=== PATIENT | female | born 1985 | race Caucasian/White ===

== ENCOUNTER → 2017-08-25 | Outpatient (CLI) | payer OTHER | LOC: BMCIMAGING 13:31 | PROVIDERS: ATTEND Emergency Medicine | DX: S92.514A Nondisplaced fracture of proximal phalanx of right lesser toe(s), initial encounter for closed fracture (principal) ==

== ENCOUNTER 2018-08-15 12:58 | Inpatient (IN) | payer OTHER ==
[2018-08-15] MEDS ORDERED: ONDANSETRON DISINTEGRATING 4 MG TAB PO PRN (18:44)
[2018-08-15] MEDS ORDERED: ONDANSETRON 4 MG/2 ML VIAL IVP PRN (18:44)
[2018-08-15] MEDS ORDERED: ACETAMINOPHEN 325 MG TAB PO PRN (18:44)
[2018-08-15] MEDS ORDERED: LORazepam 1 MG TAB PO PRN (18:46)
[2018-08-15] MEDS ORDERED: FLUMAZENIL 0.5 MG/5 ML MDV IVP PRN (18:46)
--- NOTE | 2018-08-15 18:53 | PDGENHP ---
History and Physical - Chief Complaint ETOH WD, hospital transfer - History of Present Illness This is a 33 yo female who has been transferred from [facility] due to Insurance reasons. She was admitted there due to ETOH WD. Hx is obtained from the patient and the nurse. I do not see [facility] Records at this time. Apparently the pt self admitted herself to [facility] due alcoholism on Aug 10. She reports that she transferred out of [facility] and into [facility] on Aug 13 due to possible hallucinations and worsening ETOH WD. At [facility] she was admitted into the ICU and was initially started on Precedex. Per reports this was discontinued yesterday. She is still on scheduled Librium at 25mg bid, but she reports that she has not received any this afternoon/evening. She has not required Ativan since this morning. She is not showing any signs of WD currently. She denies anxiety, tremor, cp, sob, n/v/d. 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 She prefers white wine. She has a 2 year old at home and she is hopeful to return soon. PMHx: alcoholism with binge drinking SHx: no T/E/I FmHx: non contributory History Information - Allergies/Home Medication List Allergies/Adverse Reactions: vancomycin Allergy (Intermediate, Verified 05/08/16 21:07) Home Medications: 1 tab PO BID 05/08/16 [Last Taken 1 Day Ago ~05/07/16] I have personally reviewed and updated: medical history, social history - Social History Smoking Status: Former smoker Review of Systems Review of Systems: ROS: 10pt was reviewed & negative except for what was stated in HPI & below Physical Exam Physical Exam: Constitutional: no apparent distress Eyes: PERRL Ears, Nose, Mouth, Throat: moist mucous membranes, hearing normal Cardiovascular: regular rate and rhythym, No edema Respiratory: no respiratory distress, no rales or rhonchi, clear to auscultation Gastrointestinal: normoactive bowel sounds, soft, non-tender abdomen, no palpable masses Skin: warm Musculoskeletal: full muscle strength Neurologic: AAOx3, CN II-XII Intact Psychiatric: interacting appropriately, not anxious, not encephalopathic, No anxious Lymph, Heme, Immunologic: No petechiae Assessment & Plan Assessment: #ETOH WD #Binge Drinking #M1 Hold Plan: -Stop Librium -Cont CIWA/Ativan -Obtain labs -obtain records -Security has reported to the ICU staff that the hold is not valid as it was filled out at [facility]. It was set to tomorrow morning. I do not see any e/o psychosis and currently her ETOH WD sx's are minimally, although she is on Librium. I will not fill out a new hold at this time. -CARLOS to jose alfredo
[2018-08-15] MEDS: LORazepam 2 MG/ML INJ IVP PRN (20:09)
[2018-08-15] MEDS: FAMOTIDINE 20 MG TAB PO SCH (20:10)
[2018-08-15] MEDS: THIAMINE HCL 500 MG in NS 100 ML IV SCH (20:10)
--- NOTE | 2018-08-16 06:17 | PDMN ---
Medical Necessity Medical necessity: Pt meets inpt criteria per MD order and [facility], Substance- Related Disorders, 2 days. 33 y/o transferred from other acute care facility where she was on M1 Hold, admitted for ETOH WD. Cont CIWA, IV Ativan, IVF w/ Thiamine, SDU monitoring, anticipate>2MN for med nec monitoring/treatment.
[2018-08-16 06:26] LABS: PLATELET COUNT 133 10^3/uL (150-400)
[2018-08-16 06:32] LABS: INR 0.92 (0.83-1.16); PROTIME(PATIENT) 12.6 SEC (12.0-15.0)
[2018-08-16] MEDS: LORazepam 2 MG/ML INJ IVP PRN (06:38)
[2018-08-16] MEDS ORDERED: FOLIC ACID 1 MG TAB PO SCH (09:00)
[2018-08-16] MEDS ORDERED: MULTIVITAMINS 1 EACH TAB PO SCH (09:00)
[2018-08-16] MEDS: THIAMINE HCL 500 MG in NS 100 ML IV SCH (09:39)
[2018-08-16] MEDS: FAMOTIDINE 20 MG TAB PO SCH (09:40)
[2018-08-16 09:46] VITALS: BP 112/67
--- NOTE | 2018-08-16 11:06 | PDDCSUM ---
Discharge Summary Discharge Summary: DISCHARGE DIAGNOSES: * acute alcohol withdrawal syndrome * alcoholism with prior sobriety and recidivism * chronic anxiety disorder HOSPITAL COURSE SUMMARY: This patient who has long history of anxiety disorder and alcoholism is transferred here from a [facility] because of insurance reasons. She initially presented at [facility] on August 10 to withdrawal voluntarily from alcohol having recently started drinking again. She has been through a couple of mild bouts of withdrawal not requiring hospitalization in the past. She has been through residential rehabilitation programs in the past. She has anxiety disorder going back to young years that preceded her onset of use of alcohol. She does not use any street drugs or marijuana products By the time she came to us here she was really largely through her withdrawal episode. There has been no tremor, no confusion or hallucinations. She is anxious but has chronic anxiety. She has been eating well very cooperative with nursing staff here. No signs of other complications. She has been getting thiamin therapy. At this point she is stable for discharge to home with normal vital signs, normal mentation, no organ dysfunction. On the day of discharge had a very long conversation with this patient about her alcoholism and her anxiety disorder. In terms of attempting sobriety she has been at this for quite a while with at least 3 residential rehab stays some of which she cut short, ongoing care with a psychiatrist and a therapist, previous trials at cognitive behavioral therapy, and ongoing work with and currently working with a sponsor from [facility]. She wants very much to quit drinking. She recognizes that her anxiety is a big part of what causes her to drink. Notably she has quite a bit of guilt around her drinking and around the hurt that she has caused her family members and friends. In fact having conversations with her family and friends can induce quite a bit of anxiety in her because of the skilled to the point where she is diaphoretic and has rambling stomach. Of note she is to have a meeting with her family today over her drinking issues and she is already having some anxiety about that. It was pointed out to her that she has 1st 3 steps in her hand an ongoing for some time now including recognizing there is a drinking problem, deciding that she wants to do something about it, and engaging in help. There is a hump that she has not been able to get over, and I believe that this have to do with her sense of guilt and not recognizing the connection between her anxiety and her alcohol for what it is. We discussed that she should her temper her gout and understand that the alcohol is causing her to have this issue and that this is a medical illness. We discussed that she will always have to live with alcohol but she should learned that she needs to take control of alcohol and not lytic control her. We talked about the ways alcohol control her and how she can recognize that when it is happening or about happen. We also discussed that there will never be a time when she can have even a single drink that will not lead back to regular did drinking again. She understands this and agrees with that. This was very insightful for her and helpful for her to look for new ways forward. I did discuss with her in detail that I think her anxiety issues that arise with talking to family and other friends on a regular basis or something that needs to be more successfully treated. I do not think that medications will likely be the major issue there and she should continue to look at non medicinal therapies as approaches to managing this part of her anxiety disorder. We talked about some possibilities for that. PENDING TEST RESULTS: None MEDICATION CHANGES: Ativan 1 mg 8 Tablets are prescribed for treatment of any residual withdrawal related anxiety or other symptoms She will continue her gabapentin, and continue p.r.n. Alprazolam as needed for anxiety, she apparently has a prescription for alprazolam that had been called in 10 days ago to a pharmacy that she has not picked up and anticipates that it it will not be available until she calls her prior scribing Dr. Eng. FOLLOW-UP PLAN: With her psychiatrist as scheduled, with her therapist next week in 5 days With her AA sponsor within 2-3 days With her primary care physician within 2 weeks Greater than 35 minutes bedside and care coordination time today
[2018-08-18] MEDS ORDERED: THIAMINE HCL 100 MG TAB PO SCH (09:00)
== END 2018-08-16 11:40 | disposition home or self-care (01) | DRG 897 ==
LOC: F2N 18:00 → OBSVTOIN 18:47
PROVIDERS: ADMIT Family Medicine; ATTEND Family Medicine
DX: F10.239 Alcohol dependence with withdrawal, unspecified (principal); F41.9 Anxiety disorder, unspecified
CPT/HCPCS: J2060; J3411